=== PATIENT | female | born 1990 | race Caucasian/White ===

== ENCOUNTER 2023-07-12 18:37 | Inpatient (IN) | payer OTHER ==
[2023-07-12] MEDS ORDERED: LACTATED RINGERS SOLUTION 1,000 ML IV ONE (22:35)
[2023-07-12] MEDS ORDERED: PROMETHAZINE HCL 25 MG/1 ML VIAL IVPB PRN (23:12)
[2023-07-12] MEDS ORDERED: DINOPROSTONE 10 MG VAGINAL SUPPOSITORY VG ONE (23:12)
[2023-07-12] MEDS ORDERED: BUTORPHANOL TARTRATE 1 MG/ML VIAL IVPB PRN (23:12)
[2023-07-12] MEDS ORDERED: ELECTROLYTE-148 SOLN 500 ML IV ONE (23:13)
[2023-07-13] MEDS: ELECTROLYTE-148 SOLN 1,000 ML IV SCH ×4 (00:35→22:00)
[2023-07-13 00:55] LABS: BASO % 0.4 % (0-2.0); EOS % 0.4 % (0-4.5); HEMATOCRIT 34.8 % (32.4-45.2); HEMOGLOBIN 11.2 GM/dL (10.7-15.3); LYMPH % 15.4 % (8-40); MCH 27.4 pg (25.7-33.7); MCHC 32.3 g/dl (32.0-36.0); MEAN CELL VOLUME 84.8 fl (80-96); MEAN PLT VOLUME 9.7 fl (7.5-11.1); MONO % 7.8 % (3.8-10.2); PLATELET COUNT 342 10^3/uL (134-434); RDW 14.1 % (11.6-15.6)
[2023-07-13 01:03] LABS: PROTHROMBIN TIME (PATIENT) 11.6 SEC (9.7-13.0)
[2023-07-13 01:05] LABS: ACTIVATED PTT 28.7 SECONDS (25.2-36.5)
[2023-07-13 01:13] VITALS: BMI 36.8
[2023-07-13 01:15] LABS: CALCIUM 9.1 mg/dL (8.5-10.1)
[2023-07-13 01:16] LABS: BLOOD UREA NITROGEN 7.2 mg/dL (7-18)
[2023-07-13 01:19] LABS: CREATININE 0.7 mg/dL (0.55-1.3)
[2023-07-13] MEDS ORDERED: BUTORPHANOL TARTRATE 2 MG/ML VIAL ONE ×3 (02:27→23:05)
[2023-07-13] MEDS ORDERED: PROMETHAZINE HCL 25 MG/1 ML VIAL ONE ×2 (02:27→23:00)
[2023-07-13] MEDS ORDERED: MISOPROSTOL 25 MCG TABLET (COMPOUNDED BY PHARMACY) BUC ONE (19:30)
[2023-07-13] MEDS ORDERED: BUTORPHANOL TARTRATE 2 MG/ML VIAL IVPB ONE (22:32)
[2023-07-13] MEDS ORDERED: PROMETHAZINE HCL 25 MG/1 ML VIAL IVPB ONE (22:32)
[2023-07-14] MEDS ORDERED: DINOPROSTONE 10 MG VAGINAL SUPPOSITORY VG ONE (00:05)
[2023-07-14] MEDS: ELECTROLYTE-148 SOLN 1,000 ML IV SCH ×2 (06:09→12:50)
[2023-07-14] MEDS ORDERED: CITRIC ACID/SODIUM CITRATE 30 ML UNIT-DOSE CUP PO ONE (08:25)
[2023-07-14] MEDS ORDERED: FENTANYL CITRATE/PF 50 MCG/ML VIAL ONE (08:57)
[2023-07-14] MEDS ORDERED: morphine SULFATE/PF 1 MG/2 ML (2cc Syringe - QUVA) ONE (08:57)
[2023-07-14] MEDS ORDERED: ePHEDrine SULFATE 50 MG/1 ML AMPULE ONE (09:13)
[2023-07-14] MEDS ORDERED: OXYTOCIN 10 UNITS/ML VIAL ONE (09:37)
[2023-07-14] MEDS ORDERED: OXYTOCIN 20 UNITS in 0.9% NS 20 UNIT/1,000 ML INFUS.BAG IV ONE (10:38)
[2023-07-14] MEDS: OXYTOCIN 20 UNITS in 0.9% NS 20 UNIT/1,000 ML INFUS.BAG IV SCH ×2 (10:40→18:02)
[2023-07-14] MEDS: ACETAMINOPHEN 1000 MG/100 ML BAG IVPB SCH ×3 (10:45→22:42)
[2023-07-14] MEDS ORDERED: ONDANSETRON 4 MG/2 ML VIAL IVPB PRN (10:45)
[2023-07-14] MEDS: IBUPROFEN 800 MG/8 ML IJ IVPB SCH ×2 (11:00→19:23)
[2023-07-14] MEDS: SIMETHICONE 80 MG TAB.CHEW (FP) PO PRN (19:24)
[2023-07-14] MEDS: SENNOSIDES/DOCUSATE COMBO (SENNA PLUS) TABLET (UD) PO SCH (21:41)
[2023-07-15] MEDS: IBUPROFEN 800 MG/8 ML IJ IVPB SCH (03:28)
[2023-07-15] MEDS: SIMETHICONE 80 MG TAB.CHEW (FP) PO PRN ×3 (03:29→21:06)
[2023-07-15] MEDS: ACETAMINOPHEN 1000 MG/100 ML BAG IVPB SCH (05:02)
[2023-07-15] MEDS ORDERED: oxyCODONE HCL 5 MG TABLET PO PRN (08:00)
[2023-07-15 09:21] LABS: BASO % 0.4 % (0-2.0); EOS % 0.4 % (0-4.5); HEMATOCRIT 26.8 % (32.4-45.2); HEMOGLOBIN 8.6 GM/dL (10.7-15.3); LYMPH % 19.1 % (8-40); MCH 27.5 pg (25.7-33.7); MCHC 31.9 g/dl (32.0-36.0); MEAN PLT VOLUME 9.6 fl (7.5-11.1); MONO % 8.1 % (3.8-10.2); PLATELET COUNT 234 10^3/uL (134-434); RBC 3.11 M/mm3 (3.60-5.2); RDW 14.1 % (11.6-15.6); WHITE BLOOD COUNT 11.8 K/mm3 (4.0-10.0)
[2023-07-15 10:41] VITALS: RESP 18
[2023-07-15] MEDS ORDERED: BISACODYL 10 MG SUPP.RECT RC PRN (10:45)
[2023-07-15] MEDS ORDERED: ACETAMINOPHEN 325 MG TABLET (FP) PO PRN (11:00)
[2023-07-15] MEDS: IBUPROFEN 600 MG TABLET (FP) PO PRN ×2 (14:19→21:06)
[2023-07-15] MEDS: SENNOSIDES/DOCUSATE COMBO (SENNA PLUS) TABLET (UD) PO SCH (21:06)
[2023-07-16] MEDS: IBUPROFEN 600 MG TABLET (FP) PO PRN ×3 (06:50→21:13)
[2023-07-16] MEDS: SIMETHICONE 80 MG TAB.CHEW (FP) PO PRN ×2 (14:28→21:13)
[2023-07-16] MEDS: OXYTOCIN 20 UNITS in 0.9% NS 20 UNIT/1,000 ML INFUS.BAG IV SCH (19:32)
[2023-07-16] MEDS: SENNOSIDES/DOCUSATE COMBO (SENNA PLUS) TABLET (UD) PO SCH (21:13)
[2023-07-17] MEDS: SIMETHICONE 80 MG TAB.CHEW (FP) PO PRN (06:10)
[2023-07-17] MEDS: IBUPROFEN 600 MG TABLET (FP) PO PRN (06:10)
[2023-07-17 09:36] VITALS: BP 103/63; PULSE 90; TEMP 98.2
== END 2023-07-17 11:40 | disposition home or self-care (01) | DRG 540 ==
LOC: UNDOADMIN 18:37 → JLDR 18:37 → J3W 07-14 12:40
PROVIDERS: ADMIT Obstetrics & Gynecology; ATTEND Specialist
PROC: 10D00Z1 Extraction of Products of Conception, Low, Open Approach (ICD-10-PCS; principal; 2023-07-14)
DX: O41.03X0 Oligohydramnios, third trimester, not applicable or unspecified (principal); O61.9 Failed induction of labor, unspecified; Z3A.39 39 weeks gestation of pregnancy; Z37.0 Single live birth
CPT/HCPCS: 36415; 80048; 85025; 85610; 85730; 86780; 86850; 86900; 86901; 88307-TC